=== PATIENT | male | born 1965 | race Caucasian/White ===

== ENCOUNTER 2025-06-12 09:58 | Outpatient (CLI) | payer OTHER, SELFPAY ==
--- NOTE | 2025-06-12 11:31 | P.ANES_ITS ---
Anesthesia Charges Start Date/Time Anesthesia Start Date: 06/12/25 Anesthesia Start Time: 11:05 Stop Date/Time Anesthesia Stop Date: 06/12/25 Anesthesia Stop Time: 11:33 Coding CPT Codes CPT Codes: NASREEN LWR INTST NDSC NOS - [id number] ([id number]) P2 - PATIENT W/MILD SYST DISEASE, QK - HEMATOLOGY NURSE 2-4 CNCRNT ANES PROC, QX - MANAGER BEHAVIORAL SVC W/ MD MED DIRECTION
--- NOTE | 2025-06-12 11:31 | W.ANESCHARGE ---
Anesthesia Charges Start Date/Time Anesthesia Start Date: 06/12/25 Anesthesia Start Time: 11:05 Stop Date/Time Anesthesia Stop Date: 06/12/25 Anesthesia Stop Time: 11:33 Coding CPT Codes CPT Codes: NASREEN LWR INTST NDSC NOS - [id number] ([id number]) P2 - PATIENT W/MILD SYST DISEASE, QK - MACHINE PRECISION ETCHER 2-4 CNCRNT ANES PROC, QX - COLOR BUFFER SVC W/ MD MED DIRECTION
--- NOTE | 2025-06-12 11:34 | P.ANES_ITS ---
Anesthesia Charges Start Date/Time Anesthesia Start Date: 06/12/25 Anesthesia Start Time: 11:05 Stop Date/Time Anesthesia Stop Date: 06/12/25 Anesthesia Stop Time: 11:33 Coding CPT Codes CPT Codes: NASREEN LWR INTST NDSC NOS - [id number] ([id number]) P2 - PATIENT W/MILD SYST DISEASE, QK - SMALL BRAKE FORM OPERATOR 2-4 CNCRNT ANES PROC, QX - INSURANCE DEFENSE PARALEGAL SVC W/ MD MED DIRECTION
--- NOTE | 2025-06-12 11:34 | W.ANESCHARGE ---
Anesthesia Charges Start Date/Time Anesthesia Start Date: 06/12/25 Anesthesia Start Time: 11:05 Stop Date/Time Anesthesia Stop Date: 06/12/25 Anesthesia Stop Time: 11:33 Coding CPT Codes CPT Codes: NASREEN LWR INTST NDSC NOS - [id number] ([id number]) P2 - PATIENT W/MILD SYST DISEASE, QK - NEEDLE POLISHER 2-4 CNCRNT ANES PROC, QX - SLEEVE SETTER LOCKSTITCH SVC W/ MD MED DIRECTION
== END 2025-06-12 09:59 | disposition home or self-care (01) ==
LOC: OP CLINIC 10:04
PROVIDERS: PCP Family Medicine; Visit Provider Internal Medicine Gastroenterology
DX: Z12.11 Encounter for screening for malignant neoplasm of colon (principal); D12.5 Benign neoplasm of sigmoid colon; K57.30 Diverticulosis of large intestine without perforation or abscess without bleeding
CPT/HCPCS: 00811; 00812; 45385; J2704